=== PATIENT | male | born 1935 | race Two or more races ===

== ENCOUNTER 2023-10-27 11:55 | Emergency (ER) | payer OTHER ==
[~2023-10-27] VITALS: Ht 160 cm; Wt 86.2 kg
[2023-10-27] MEDS ORDERED: NYSTATIN 5 ML BLIST.PACK PO STA (14:26)
[2023-10-27] MEDS ORDERED: LIDOCAINE HCL 20 MG/ML BLIST.PACK MM STA (14:27)
== END 2023-10-27 16:27 | disposition left against medical advice (07) ==
LOC: ER 11:56
DX: K14.6 Glossodynia (principal)